=== PATIENT | male | born 1995 | race Caucasian/White ===

== ENCOUNTER 2017-09-18 05:54 | Inpatient (IN) | payer BC ==
[~2017-09-18] VITALS: Ht 157.5 cm; Wt 80.0 kg
[2017-09-18 07:58] VITALS: BP 103/61; RESP 16
[2017-09-18] MEDS ORDERED: HYDROCODONE/APAP (5/325) TAB PO PRN (08:30)
[2017-09-18] MEDS: DEXTROSE 5%-0.9% NACL 1,000 ML IV SCH ×3 (08:45→20:45)
[2017-09-18 09:27] VITALS: Ht 157.5 cm; Wt 80.0 kg
[2017-09-18] MEDS ORDERED: NACL 0.9% 3 ML SYG IV SCH (09:30)
[2017-09-18] MEDS ORDERED: morphine 2 MG INJ IV PRN (09:30)
[2017-09-18] MEDS ORDERED: ACETAMINOPHEN 325 MG TAB PO PRN (09:30)
[2017-09-18] MEDS ORDERED: ONDANSETRON 4 MG INJ IV PRN (09:30)
[2017-09-18] MEDS ORDERED: ACETAMINOPHEN 650 MG SUPP PR PRN (09:30)
[2017-09-18] MEDS ORDERED: PIPER-TAZO 3.375 GM IV (PMX) 100 ML IVPB SCH (09:30)
[2017-09-18] MEDS: FAMOTIDINE 20 MG INJ IV SCH ×2 (10:20→20:44)
[2017-09-18 10:53] LABS: BASOPHIL # 0.1 10^3/ul (0.0-0.1); BASOPHILS % 0.7 % (0.0-2.0); EOSINOPHILS # 0.2 10^3/ul (0.0-0.5); EOSINOPHILS % 1.7 % (0.0-7.0); HEMATOCRIT 44.2 % (42.0-52.0); HEMOGLOBIN 14.4 g/dl (14.0-18.0); LYMPHOCYTES # 3.3 10^3/ul (0.8-2.9); LYMPHOCYTES % 30.9 % (15.0-51.0); MEAN CORPUSCULAR HEMOGLOBIN 28.1 pg (29.0-33.0); MEAN CORPUSCULAR HGB CONC 32.6 g/dl (32.0-37.0); MEAN CORPUSCULAR VOLUME 86.2 fl (82.0-101.0); MEAN PLATELET VOLUME 11.6 fl (7.4-10.4); NEUTROPHIL # 6.1 10^3/ul (1.6-7.5); NEUTROPHILS % 57.3 % (39.0-77.0); PLATELET COUNT 243 10^3/UL (140-415); RED BLOOD COUNT 5.13 10^6/ul (4.70-6.10); RED CELL DISTRIBUTION WIDTH 13.6 % (11.5-14.5); WHITE BLOOD COUNT 10.6 10^3/ul (4.8-10.8)
[2017-09-18 11:13] LABS: ALBUMIN 4.4 g/dl (3.3-4.9); ALBUMIN/GLOBULIN RATIO 1.33; BILIRUBIN,INDIRECT 0.3 mg/dl (0-1.1); BILIRUBIN,TOTAL 0.3 mg/dl (0.2-1.3); CALCIUM 9.2 mg/dl (8.4-10.2); CREATININE 0.74 mg/dl (0.61-1.24); MAGNESIUM 1.9 mg/dl (1.7-2.5); POTASSIUM 4.3 mmol/L (3.5-5.1); TOTAL PROTEIN 7.7 g/dl (6.1-8.1)
[2017-09-18 11:25] LABS: INR 0.95; PROTIME 12.7 Sec (12.2-14.2)
[2017-09-18 11:26] LABS: PARTIAL THROMBOPLASTIN TIME 28.2 Sec (25.0-35.0)
[2017-09-18] MEDS ORDERED: DIPHENHYDRAMINE 50 MG INJ IV PRN (11:30)
--- NOTE | 2017-09-18 12:50 | HP ---
Date/Time of Note Date/Time of Note DATE: 09/18/17 TIME: 12:22 Assessment/Plan VTE Prophylaxis VTE Prophylaxis Intervention: SCD's Lines/Catheters IV C[facility]ter Type (from [facility]): Peripheral IV Assessment/Plan Assessment/Plan 22-year-old male with: 1. Possibly acute early appendicitis, CAT scan not showing inflammatory changes but appendicolith seen in the mid appendix, continue IV antibiotics will switch to ciprofloxacin and Flagyl given the possible allergic reaction to Zosyn. Follow-up recommendations from Dr. Meyer N.p.o. for now, continue IV fluids. Prophylaxis: Pepcid for GI prophylaxis, SCDs for DVT prophylaxis Disposition: Follow up surgical recommendations. HPI/ROS Admit Date/Time Admit Date/Time Sep 18, 2017 at 07:22 Hx of Present Illness Chief complaint: Right lower quadrant pain History of presenting illness: This is a 22-year-old male with history of on and off periumbilical pain and more recently right lower quadrant pain over the past month at least, he presented at [facility] with complaint of acute onset of right lower quadrant pain approximately 24 hours prior to presentation but has worsened by the time he presented yesterday in the ER. He denies nausea, vomiting, fevers, chills. He has been able to tolerate p.o. but the pain was persistent and worsening. Patient had a CBC and a white blood cell count came back at 13.8, he also had a CAT scan of the abdomen and pelvis with and without contrast that did show small appendicolith in the mid appendix without evidence of active inflammatory changes. Patient was apparently evaluated by general surgery at [facility] and they suspect that he may be having early appendicitis but stable for transfer. Was given a dose of Rocephin and Flagyl, transferred to [facility] for surgical evaluation. Repeat labs have been drawn they are within normal. Patient currently denies pain in the right lower quadrant except when he ambulates for a while. Dr. Yehuda Meyer has been consulted and will be seeing the patient. Further disposition after surgical consult. Patient and mother at bedside have been updated. Of note patient was started on Zosyn and apparently he had possibly allergic reaction to it, he will be switched to Flagyl and ciprofloxacin. ROS Constitutional: no complaints ENT: no complaints Respiratory: no complaints Cardiovascular: no complaints Gastrointestinal: pain (Right lower quadrant) Genitourinary: no complaints Musculoskeletal: no complaints Skin: no complaints Neurologic: no complaints PMH/Family/Social Past Medical History None Past Surgical History None Social History Alcohol Use: none Smoking Status: Current some day smoker (Patient smokes Hooka at least 3 times a week) Drug Use: none Exam/Review of Systems Vital Signs Vitals Vital Signs Date Time Temp Pulse Resp B/P Pulse Ox O2 Delivery O2 Flow Rate FiO2 09/18/17 10:36 98.1 09/18/17 07:58 63 16 103/61 97 Exam Constitutional: alert, oriented, well developed Psych: anxiety Cardiovascular: nl pulses, regular rate and rhythm Gastrointestinal: soft, tender (Very mild right lower quadrant to deep palpation otherwise no pain.) Musculoskeletal: nl extremities to inspection, nl gait and stance Neurological: PROCESS CONTROL SUPERVISOR II-XII intact, nl mental status, nl speech, nl strength Labs Result Diagram: 09/18/17 1003 09/18/17 1003 Medications Medications Current Medications Dextrose/Sodium Chloride (D5-NS) 1,000 ml @ 100 mls/hr Q10H IV Last administered on 09/18/17 08:45; Admin Dose 100 MLS/HR; Start 09/18/17 at 08: 30 Acetaminophen/ Hydrocodone Bitart ([place] (5/325)) 1 tab Q4H PRN PO PAIN; Start 09/18/17 at 08:30 Ondansetron HCl (Zofran Inj) 4 mg Q6H PRN IV NAUSEA AND/OR VOMITING; Start at 09:30 Acetaminophen (Tylenol Tab) 650 mg Q6H PRN PO PAIN LEVEL 1-3 OR FEVER; Start 09/18/17 at 09:30 Acetaminophen (Tylenol Supp) 650 mg Q6H PRN [place] PAIN LEVEL 1-3 OR FEVER; Start 09/18/17 at 09:30 Morphine Sulfate (morphine) 2 mg Q4H PRN IV SEVERE PAIN LEVEL 7-10; Start at 09:30 Famotidine (Pepcid Iv) 20 mg Q12 IV Last administered on 09/18/17 10:20; Admin Dose 20 MG; Start 09/18/17 at 09:30 Diphenhydramine HCl (Benadryl) 25 mg Q6H PRN IV ITCHING; Start 09/18/17 at 11: 30 LOLI GUADALUPE 26, 2017 12:36
[2017-09-18 13:39] VITALS: BP 109/66; RESP 16
[2017-09-18] MEDS: CIPROFLOXACIN 400MG/D5W 200 ML IVPB SCH ×2 (14:04→20:44)
[2017-09-18] MEDS: metroNIDAZOLE 500 MG/NS (PMX) 100 ML IVPB SCH ×2 (14:09→22:12)
--- NOTE | 2017-09-18 15:43 | CONS ---
Date/Time of Note Date/Time of Note DATE: 09/18/17 TIME: 15:43 Assessment/Plan Assessment/Plan Additional Assessment/Plan [facility] INPATIENT CONSULTATION NOTE DATE OF SERVICE: 09/18/2017 PLACE OF SERVICE: [facility], sixth floor ASSESSMENT AND PLAN: A very-pleasant 22-year-old young gentleman presenting with right lower quadrant abdominal pain which may be from very early acute appendicitis, although other etiologies have a higher chance since the patient has no major other signs of appendicitis other than minor abdominal pain that seems to have improved significantly after hospitalization and CT finding of appendicolith but no periappendiceal inflammation. Currently I do not see any indication for acute surgical intervention. We certainly have the option of observing the patient in house overnight and reevaluating with the plan of operative intervention if the patient still has abdominal pain. I explained all of the above in detail with the patient and his family including his mother and answered all questions. Patient and family appear to understand and agreed with plans. With above assessment, I've recommended the followin. Continue in-house observation 2. Careful monitoring of vital signs 3. Strict I's and O's 4. Continue intravenous antimicrobials 5. Patient may eat until midnight and n.p.o. after midnight 6. I will have the patient on the add-on schedule for lap appendectomy tomorrow with the plan of canceling it if the patient's pain disappears Thank you very much for having me involved in the care of this very pleasant patient and wonderful family. If you have any questions, please feel free to contact me at [phone]. Nature of presenting problem: low severity Please note that, given the limited number of diagnoses or management options, the limited amount and/or complexity of data needed to be reviewed, and low risk of complications and/or morbidity or mortality, this qualifies as low complexity type of decision-making. Disclaimers: 1. Inadvertent spelling and grammatical errors are likely due to electronic health record (EHR)/dictation software used and do not reflect on the quality of delivered patient care. 2. The electronic timestamp recorded on this note does not necessarily reflect the actual date and time of the visit or the service. 3. Portions of this note may have been created through electronic templates and computer algorithms that might bring in information either from the system or from other physicians and providers. Please note that such information may or may not contain errors, the occurrence of which are outside of my control. In general (but not always) this happens either in the beginning or at the end of the note. The portion of the note that I have created are generally done in 1 continuous block of text, flanked at the beginning and at the end by " ", and entered into one field in the EHR. 4. There may be other unanticipated errors in the note that are outside of my control. I can only attest to the portions of the note that I have created. Updated clinical summary: A very-pleasant 22-year-old young gentleman presenting with right lower quadrant abdominal pain which may be from very early acute appendicitis, although other etiologies have a higher chance since the patient has no major other signs of appendicitis other than minor abdominal pain that seems to have improved significantly after hospitalization and CT finding of appendicolith but no periappendiceal inflammation. Comorbidities: 1. BMI 32.3 2. Anxiety CONSULTATION REQUESTED BY: Grazyna Castano MD Dear Dr. Castano, Thank you very much for the opportunity to participate in the care of this very pleasant gentleman and his wonderful family. HISTORY OF PRESENT ILLNESS: The patient is a very pleasant 22-year-old gentleman with above-mentioned comorbidities whom we were kindly asked to consult regarding management of abdominal pain with suspicion of possible early acute appendicitis. Per patient's report, his pain started around 2 days ago and was in the right lower quadrant without radiation. He did not report significant nausea or vomiting, no chills, no fevers, no diarrhea, no constipation, no blood in the stool or urine. Was initially evaluated at an urgent care from where he was sent to [facility] ER where a CT scan was done that demonstrated small appendicolith in the middle of the appendix but no periappendiceal inflammation. He was transferred to [facility] where his vitals and his laboratory values were unremarkable. I was kindly asked consult. No other major findings during my discussions with the patient. ALLERGIES: Possible allergy to penicillin (patient started having breathing problems per his own report and family after receiving Zosyn) MEDICATIONS Documented in the electronic records and reviewed by me. Please see the electronic records for details, as well as details for inpatient medications which were also reviewed by me. SOCIAL HISTORY: The patient lives with family.-Tob;-ETOH;-IVDU; works in [employer] FAMILY HISTORY: There are no significant medical, surgical or oncologic issues in the family as reported by the patient or reflected in the chart. REVIEW OF SYSTEMS: Other than mentioned above, there were no other pertinent positives or pertinent negatives in an otherwise complete 14 point review of systems. PHYSICAL EXAMINATION GENERAL: The patient appears to be a very pleasant gentleman of [place] descent lying in bed, appearing stated age, and otherwise in no acute distress. BMI: 32.3 VITAL SIGNS: AVSS (please also see auto important data if available as well as the electronic records) HEENT: Normocephalic and atraumatic. Extraocular muscles and hearing are grossly intact bilaterally and symmetrically. Sclerae are nonicteric. Oral cavity is clear; oral mucosa appear to be pink and moist. Dentition: fair. NECK: Supple. There is no lymphadenopathy or JVD. There is no submental, submandibular or supraclavicular lymphadenopathy. CHEST: Rises symmetrically with each breath; patient is breathing comfortably. There are no audible wheezes, rales or rhonchi on the gross exam. HEART: Pulse is regular and palpable on the right wrist. Capillary refill is normal. Carotid pulses are palpable bilaterally and symmetrically in the neck. EXTREMITIES: Lower extremities contain no pitting edema around the ankles bilaterally and symmetrically. ABDOMEN: Abdomen is soft, nontender and nondistended. No evidence of ascites, organomegaly, caput medusae, engorged subcutaneous veins, or other abnormalities. There are no peritoneal signs or guarding. SKIN: Appears to be pink and feels warm to touch. NEUROLOGIC: Awake, alert, and follows commands appropriately. LABORATORY DATA: See below IMAGING: See electronic chart. Please note that I've personally reviewed all pertinent available images and I agree in general with their overall reported findings. Consultation Date/Type/Reason Admit Date/Time Sep 18, 2017 at 07:22 ENT: no complaints Respiratory: no complaints Cardiovascular: no complaints Gastrointestinal: pain (Right lower quadrant) Genitourinary: no complaints Musculoskeletal: no complaints Skin: no complaints Neurologic: no complaints Psychological: anxiety Social History Alcohol Use: none Smoking Status: Current some day smoker (Patient smokes Hooka at least 3 times a week) Drug Use: none Exam/Review of Systems Vital Signs Vitals Vital Signs Date Time Temp Pulse Resp B/P Pulse Ox O2 Delivery O2 Flow Rate FiO2 09/18/17 13:39 98.2 72 16 109/66 97 Results Result Diagram: 09/18/17 1003 09/18/17 1003 Results 24 hrs Laboratory Tests Test 09/18/17 10:03 White Blood Count 10.6 Red Blood Count 5.13 Hemoglobin 14.4 Hematocrit 44.2 Mean Corpuscular Volume 86.2 Mean Corpuscular Hemoglobin 28.1 L Mean Corpuscular Hemoglobin Concent 32.6 Red Cell Distribution Width 13.6 Platelet Count 243 Mean Platelet Volume 11.6 H Neutrophils % 57.3 Lymphocytes % 30.9 Monocytes % 9.0 Eosinophils % 1.7 Basophils % 0.7 Nucleated Red Blood Cells % 0.0 Neutrophils # 6.1 Lymphocytes # 3.3 H Monocytes # 1.0 H Eosinophils # 0.2 Basophils # 0.1 Nucleated Red Blood Cells # 0.0 Prothrombin Time 12.7 Prothrombin Time Ratio 1.0 INR International Normalized Ratio 0.95 Activated Partial Thromboplast Time 28.2 Sodium Level 142 Potassium Level 4.3 Chloride Level 106 Carbon Dioxide Level 25 Anion Gap 15 Blood Urea Nitrogen 8 Creatinine 0.74 Glucose Level 110 Calcium Level 9.2 Magnesium Level 1.9 Total Bilirubin 0.3 Direct Bilirubin 0.00 Indirect Bilirubin 0.3 Aspartate Amino Transf (AST/SGOT) 26 Alanine Aminotransferase (ALT/SGPT) 56 Alkaline Phosphatase 83 Total Protein 7.7 Albumin 4.4 Globulin 3.30 H Albumin/Globulin Ratio 1.33 Medications Medications Current Medications Dextrose/Sodium Chloride (D5-NS) 1,000 ml @ 100 mls/hr Q10H IV Last administered on 09/18/17t 08:45; Admin Dose 100 MLS/HR; Start 09/18/17 at 08: 30 Acetaminophen/ Hydrocodone Bitart ([place] (5/325)) 1 tab Q4H PRN PO PAIN; Start 09/18/17 at 08:30 Ondansetron HCl (Zofran Inj) 4 mg Q6H PRN IV NAUSEA AND/OR VOMITING; Start at 09:30 Acetaminophen (Tylenol Tab) 650 mg Q6H PRN PO PAIN LEVEL 1-3 OR FEVER; Start 09/18/17 at 09:30 Acetaminophen (Tylenol Supp) 650 mg Q6H PRN [place] PAIN LEVEL 1-3 OR FEVER; Start 09/18/17 at 09:30 Morphine Sulfate (morphine) 2 mg Q4H PRN IV SEVERE PAIN LEVEL 7-10; Start at 09:30 Famotidine (Pepcid Iv) 20 mg Q12 IV Last administered on 09/18/17 10:20; Admin Dose 20 MG; Start 09/18/17 at 09:30 Diphenhydramine HCl 25 mg 25 mg Q6H PRN IV ITCHING; Start 09/18/17 at 11:30 Metronidazole 100 ml @ 100 mls/hr Q8 IVPB Last administered on 09/18/17 14: 09; Admin Dose 100 MLS/HR; Start 09/18/17 at 14:00 Ciprofloxacin/ Dextrose (Cipro Ivpb) 200 ml @ 200 mls/hr Q12 IVPB Last administered on 09/18/17 14:04; Admin Dose 200 MLS/HR; Start 09/18/17 at 13: 00 AYLEEN LOVE M.D. Sep 18, 2017 15:43 AYLEEN LOVE M.D. Sep 18, 2017 15:43
[2017-09-18 20:00] VITALS: BP 100/59; RESP 20
[2017-09-19 02:00] VITALS: BP 103/67; RESP 20
[2017-09-19] MEDS: DEXTROSE 5%-0.9% NACL 1,000 ML IV SCH (04:30)
[2017-09-19] MEDS: metroNIDAZOLE 500 MG/NS (PMX) 100 ML IVPB SCH (05:29)
[2017-09-19 06:45] LABS: BASOPHIL # 0.1 10^3/ul (0.0-0.1); BASOPHILS % 0.6 % (0.0-2.0); EOSINOPHILS # 0.2 10^3/ul (0.0-0.5); EOSINOPHILS % 1.8 % (0.0-7.0); HEMATOCRIT 42.8 % (42.0-52.0); HEMOGLOBIN 13.9 g/dl (14.0-18.0); LYMPHOCYTES # 3.5 10^3/ul (0.8-2.9); LYMPHOCYTES % 35.2 % (15.0-51.0); MEAN CORPUSCULAR HEMOGLOBIN 28.3 pg (29.0-33.0); MEAN CORPUSCULAR HGB CONC 32.5 g/dl (32.0-37.0); MEAN CORPUSCULAR VOLUME 87.2 fl (82.0-101.0); MEAN PLATELET VOLUME 11.5 fl (7.4-10.4); MONOCYTES % 9.7 % (0.0-11.0); NEUTROPHIL # 5.2 10^3/ul (1.6-7.5); NEUTROPHILS % 52.5 % (39.0-77.0); PLATELET COUNT 232 10^3/UL (140-415); RED BLOOD COUNT 4.91 10^6/ul (4.70-6.10); RED CELL DISTRIBUTION WIDTH 13.8 % (11.5-14.5); WHITE BLOOD COUNT 9.8 10^3/ul (4.8-10.8)
[2017-09-19 06:59] LABS: ALBUMIN 3.7 g/dl (3.3-4.9); ALBUMIN/GLOBULIN RATIO 1.12; BILIRUBIN,INDIRECT 0.3 mg/dl (0-1.1); BILIRUBIN,TOTAL 0.3 mg/dl (0.2-1.3); CALCIUM 9.5 mg/dl (8.4-10.2); CREATININE 0.89 mg/dl (0.61-1.24); MAGNESIUM 1.8 mg/dl (1.7-2.5); PHOSPHORUS 4.7 mg/dl (2.5-4.9); POTASSIUM 4.2 mmol/L (3.5-5.1)
[2017-09-19 07:22] VITALS: BP 99/58; RESP 18
[2017-09-19] MEDS: FAMOTIDINE 20 MG INJ IV SCH (09:29)
[2017-09-19] MEDS: CIPROFLOXACIN 400MG/D5W 200 ML IVPB SCH (09:31)
--- NOTE | 2017-09-19 09:57 | PN ---
Date/Time of Note Date/Time of Note DATE: 09/19/17 TIME: 09:52 Assessment/Plan VTE Prophylaxis VTE Prophylaxis Intervention: SCD's Lines/Catheters IV Catheter Type (from Nrs): Peripheral IV Assessment/Plan Assessment/Plan 22-year-old male with: 1. Possibly acute early appendicitis, CAT scan not showing inflammatory changes but appendicolith seen in the mid appendix, Appreciate recommendations from Dr. Meyer, on IV antibiotics and IV fluids. N.p.o. after midnight last night, will follow-up recommendations from general surgery today regarding appendectomy versus conservative/medical management and outpatient follow-up. Prophylaxis: Pepcid for GI prophylaxis, SCDs for DVT prophylaxis Disposition: Follow up surgical recommendations today for further plan of care. Subjective 24 Hr Interval Summary Free Text/Dictation Patient denies any abdominal pain, he did tolerate some of the liquid food yesterday, he is so anxious and nervous that he has a hard time eating. He denies significant abdominal pain, nausea or vomiting. No fevers, no chills, tolerating ciprofloxacin and Flagyl well. Will follow up with Dr. Meyer today regarding plan of care. Exam/Review of Systems Vital Signs Vitals Vital Signs Date Time Temp Pulse Resp B/P Pulse Ox O2 Delivery O2 Flow Rate FiO2 09/19/17 07:22 98.2 55 18 99/58 97 Intake and Output 09/18/17 09/18/17 09/19/17 15:00 23:00 07:00 Intake Total 1620 ml 1450 ml Output Total 900 ml Balance 1620 ml 550 ml Exam Constitutional: alert, oriented, well developed Psych: anxiety Respiratory: clear to auscultation, normal air movement Cardiovascular: nl pulses, regular rate and rhythm Gastrointestinal: non-tender, soft Musculoskeletal: nl extremities to inspection, nl gait and stance Extremities: normal pulses Neurological: MANAGER SWITCH II-XII intact, nl mental status, nl speech, nl strength Results Result Diagram: 09/19/17 0617 09/19/17 0617 Results 24 hrs Laboratory Tests Test 09/18/17 10:03 09/19/17 06:17 White Blood Count 10.6 9.8 Red Blood Count 5.13 4.91 Hemoglobin 14.4 13.9 L Hematocrit 44.2 42.8 Mean Corpuscular Volume 86.2 87.2 Mean Corpuscular Hemoglobin 28.1 L 28.3 L Mean Corpuscular Hemoglobin Concent 32.6 32.5 Red Cell Distribution Width 13.6 13.8 Platelet Count 243 232 Mean Platelet Volume 11.6 H 11.5 H Neutrophils % 57.3 52.5 Lymphocytes % 30.9 35.2 Monocytes % 9.0 9.7 Eosinophils % 1.7 1.8 Basophils % 0.7 0.6 Nucleated Red Blood Cells % 0.0 0.0 Neutrophils # 6.1 5.2 Lymphocytes # 3.3 H 3.5 H Monocytes # 1.0 H 1.0 H Eosinophils # 0.2 0.2 Basophils # 0.1 0.1 Nucleated Red Blood Cells # 0.0 0.0 Prothrombin Time 12.7 Prothrombin Time Ratio 1.0 INR International Normalized Ratio 0.95 Activated Partial Thromboplast Time 28.2 Sodium Level 142 145 H Potassium Level 4.3 4.2 Chloride Level 106 110 Carbon Dioxide Level 25 27 Anion Gap 15 12 Blood Urea Nitrogen 8 6 L Creatinine 0.74 0.89 Glucose Level 110 100 Calcium Level 9.2 9.5 Magnesium Level 1.9 1.8 Total Bilirubin 0.3 0.3 Direct Bilirubin 0.00 0.00 Indirect Bilirubin 0.3 0.3 Aspartate Amino Transf (AST/SGOT) 26 21 Alanine Aminotransferase (ALT/SGPT) 56 50 Alkaline Phosphatase 83 78 Total Protein 7.7 7.0 Albumin 4.4 3.7 Globulin 3.30 H 3.30 H Albumin/Globulin Ratio 1.33 1.12 Phosphorus Level 4.7 Medications Medications Current Medications Dextrose/Sodium Chloride (D5-NS) 1,000 ml @ 100 mls/hr Q10H IV Last administered on 09/18/17t 20:45; Admin Dose 100 MLS/HR; Start 09/18/17 at 08: 30 Acetaminophen/ Hydrocodone Bitart ([place] (5/325)) 1 tab Q4H PRN PO PAIN; Start 09/18/17 at 08:30 Ondansetron HCl (Zofran Inj) 4 mg Q6H PRN IV NAUSEA AND/OR VOMITING; Start at 09:30 Acetaminophen (Tylenol Tab) 650 mg Q6H PRN PO PAIN LEVEL 1-3 OR FEVER; Start 09/18/17 at 09:30 Acetaminophen (Tylenol Supp) 650 mg Q6H PRN [place] PAIN LEVEL 1-3 OR FEVER; Start 09/18/17 at 09:30 Morphine Sulfate (morphine) 2 mg Q4H PRN IV SEVERE PAIN LEVEL 7-10; Start at 09:30 Famotidine (Pepcid Iv) 20 mg Q12 IV Last administered on 09/19/17 09:29; Admin Dose 20 MG; Start 09/18/17 at 09:30 Diphenhydramine HCl 25 mg 25 mg Q6H PRN IV ITCHING; Start 09/18/17 at 11:30 Metronidazole 100 ml @ 100 mls/hr Q8 IVPB Last administered on 09/19/17 05: 29; Admin Dose 100 MLS/HR; Start 09/18/17 at 14:00 Ciprofloxacin/ Dextrose (Cipro Ivpb) 200 ml @ 200 mls/hr Q12 IVPB Last administered on 09/19/17 09:31; Admin Dose 200 MLS/HR; Start 09/18/17 at 13: 00 LOLI GUADALUPE Sep 19, 2017 09:57
--- NOTE | 2017-09-19 11:13 | PDOCDIS ---
Discharge Instructions CONDITION Patient Condition: Stable HOME CARE INSTRUCTIONS: Diet Instructions: Regular ACTIVITY: Activity Restrictions: No Restrictions FOLLOW UP/APPOINTMENTS Follow-up Plan Follow-up with primary care physician within 1 week Follow-up with Dr. Meyer as outpatient within 1 week as needed Referral to gastroenterology as outpatient, Dr. Smart, regarding nonspecific intermittent abdominal pain for the past 2 months LOLI GUADALUPE Sep 19, 2017 11:13
[2017-09-19] MEDS ORDERED: CIPR500T4 PO (11:16)
[2017-09-19] MEDS ORDERED: METR500T PO (11:16)
--- NOTE | 2017-09-19 11:42 | PN ---
Date/Time of Note Date/Time of Note DATE: 09/19/17 TIME: 11:41 Assessment/Plan Lines/Catheters IV Catheter Type (from Nrs): Peripheral IV Assessment/Plan Assessment/Plan [facility] Progress Note Date of Service: 09/19/2017 Location of Service: [facility] 6 floor Today's Assessment & Plan: Overall stable and doing well. Abdominal pain is essentially completely gone. Abdomen remains benign. Clinically appears to be stable and in my opinion able to discharge home with outpatient follow-up with gastroenterology and primary care physician. No indication for acute surgical intervention. Spend quite a bit of time with the patient and family describing all of the above and reassuring him and after careful consideration of all of his options that included keeping in touch with my office with 24 hour access and with low threshold to return back to the hospital, patient and family appear to be comfortable with the decision making and agreed with discharge home. With above assessment, I've recommended the followin. Discharge home today 2. 2 days of oral antimicrobials (Cipro alone would be sufficient) 3. Follow with primary care physician 4. Expedited authorization to see Dr. Smart for outpatient gastroenterology consultation 5. Permanent changes to lifestyle with the goal of bringing the BMI between 24 and 18 Thank you very much for having me involved in the care of this very pleasant patient and wonderful family. If you have any questions, please feel free to contact me at [phone]. Nature of presenting problem: low severity Please note that, given the limited number of diagnoses or management options, the limited amount and/or complexity of data needed to be reviewed, and low risk of complications and/or morbidity or mortality, this qualifies as low complexity type of decision-making. Disclaimers: 1. Inadvertent spelling and grammatical errors are likely due to electronic health record (EHR)/dictation software used and do not reflect on the quality of delivered patient care. 2. The electronic timestamp recorded on this note does not necessarily reflect the actual date and time of the visit or the service. 3. Portions of this note may have been created through electronic templates and computer algorithms that might bring in information either from the system or from other physicians and providers. Please note that such information may or may not contain errors, the occurrence of which are outside of my control. In general (but not always) this happens either in the beginning or at the end of the note. The portion of the note that I have created are generally done in 1 continuous block of text, flanked at the beginning and at the end by " ", and entered into one field in the EHR. 4. There may be other unanticipated errors in the note that are outside of my control. I can only attest to the portions of the note that I have created. Updated clinical summary: A very-pleasant 22-year-old young gentleman presenting with right lower quadrant abdominal pain which may be from very early acute appendicitis, although other etiologies have a higher chance since the patient has no major other signs of appendicitis other than minor abdominal pain that seems to have improved significantly after hospitalization and CT finding of appendicolith but no periappendiceal inflammation. Comorbidities: 1. BMI 32.3 2. Anxiety Subjective: No major events or complaints; no abd pain; no n/v/d; no sob or cp; + flatus; + BM and normal; + activity Objective: Vitals: See below Exam: GENERAL: On exam, the patient was laying in bed and appeared to be comfortable and in no acute distress. ABDOMEN: Soft, nontender and nondistended. There are no peritoneal signs or guarding. SKIN: Skin appears to be pink and feels warm to touch. NEUROLOGIC: Patient is awake, alert, and follows commands appropriately. Exam/Review of Systems Vital Signs Vitals Vital Signs Date Time Temp Pulse Resp B/P Pulse Ox O2 Delivery O2 Flow Rate FiO2 09/19/17 07:22 98.2 55 18 99/58 97 Intake and Output 09/18/17 09/18/17 09/19/17 15:00 23:00 07:00 Intake Total 1620 ml 1450 ml Output Total 900 ml Balance 1620 ml 550 ml Results Result Diagram: 09/19/1761609/19/17616 AYLEEN LOVE M.D. Sep 19, 2017 11:42
[2017-09-19] MEDS ORDERED: metroNIDAZOLE 500 MG TAB PO SCH (14:00)
[2017-09-19] MEDS ORDERED: CIPROFLOXACIN 500 MG TAB PO SCH (21:00)
== END 2017-09-19 12:05 | disposition home or self-care (01) | DRG 395 ==
LOC: MS2 07:22
PROVIDERS: ADMIT Internal Medicine; ATTEND Internal Medicine
DX: K35.80 Unspecified acute appendicitis (principal); F41.9 Anxiety disorder, unspecified; F17.210 Nicotine dependence, cigarettes, uncomplicated
CPT/HCPCS: 80053; 83735; 84100; 85025; 85610; 85730; J0744; J2405; J2543; J7042